=== PATIENT | male | born 1995 | race Two or more races ===

== ENCOUNTER 2020-10-09 13:25 | Emergency (ER) | payer OTHER ==
[2020-10-09 12:33] LABS: RED BLOOD COUNT 4.88 M/UL (4.20-5.50); WHITE BLOOD COUNT 6.4 K/UL (4.5-11.0)
[2020-10-09 13:09] LABS: BUN/CREATININE RATIO 11 (0-10)
[2020-10-10 08:14] LABS: HBSAG SCREEN Negative (Negative); HEP A AB, IGM Negative (Negative); HEP B CORE AB, IGM Negative (Negative); HEP C VIRUS AB <0.1 (0.0-0.9)
== END 2020-10-09 16:25 | disposition home or self-care (01) ==
LOC: ER1 13:25
PROVIDERS: Physician Assistant
DX: R10.13 Epigastric pain (principal); R10.31 Right lower quadrant pain; R07.9 Chest pain, unspecified; F41.9 Anxiety disorder, unspecified; E87.6 Hypokalemia; F10.10 Alcohol abuse, uncomplicated; Y90.8 Blood alcohol level of 240 mg/100 ml or more; R00.0 Tachycardia, unspecified; Z87.891 Personal history of nicotine dependence
CPT/HCPCS: 71045; 80053; 80074; 80307; 81001; 82150; 82550; 82553; 83605; 83690; 83735; 83874; 84484; 85025; 87040; 93005; 96374; 96375; 99285; G0480; J2060; J2405; J2543; Q9967